=== PATIENT | female | born 1970 | race Caucasian/White ===

== ENCOUNTER 2017-03-02 15:16 | Outpatient (CLI) | payer OTHER ==
--- NOTE | 2017-03-02 17:04 | MMO ---
BILATERAL SCREENING MAMMOGRAMS: DATE: 03/02/2017 COMPARISON: Prior exams of 2014 and 2015. This patient's mammogram was interpreted with the assistance of computer-aided detection. FINDINGS: Heterogeneously dense glandular pattern. No evidence of mass, distortion, or suspicious calcificatio n. No interval change seen. IMPRESSION: BI-RADS 1: Negative. Recommend one year follow-up. POS: [facility]
== END 2017-03-02 15:17 | disposition home or self-care (01) ==
LOC: SCSMAMMO 15:16
PROVIDERS: ATTEND Obstetrics & Gynecology
DX: Z12.31 Encounter for screening mammogram for malignant neoplasm of breast (principal)
CPT/HCPCS: 77067; G0202